=== PATIENT | male | born 1945 | race Hispanic/Latino ===

== ENCOUNTER 2019-01-24 06:46 | Day surgery (SDC) | payer OTHER, MEDICARE ==
[2019-01-23 15:15] VITALS: BP 152/79
--- NOTE | 2019-01-23 15:50 | NUR ---
ASPIRIN PT STATED HE TOOK HIS ASPIRIN THIS MORNING. NOTIFIED DR. BECERRA. OKAY TO PROCEED WITH PLANNED PROCEDURE.
[2019-01-23] MEDS: CEFAZOLIN SODIUM 1 GM VIAL IVP SCH (17:45)
[~2019-01-24] VITALS: Ht 177.8 cm; Wt 89.3 kg
[2019-01-24] VITALS (14 sets, daily range): BP systolic 111–155; BP diastolic 62–102
[~2019-01-24 06:46] MED LIST: AMLODIPINE PO; ASPI-555 PO; DULO30CA51 PO; HYDR-4064 PO; INS7030 SQ; METF500S7 PO; PRAV10TA39 PO
[2019-01-24] MEDS ORDERED: LIDOCAINE PF 2% 5ML ABBOJECT ONE (07:32)
[2019-01-24] MEDS ORDERED: SUCCINYLCHOLINE 200MG/10ML SYR ONE ×2 (07:32→07:35)
[2019-01-24] MEDS ORDERED: GLYCOPYRROLATE 1 MG/5 ML SYRINGE ONE (07:33)
[2019-01-24] MEDS ORDERED: DEXAMETHASONE SOD PHOSPHATE 10MG/ML 1ML VIAL ONE (07:33)
[2019-01-24] MEDS ORDERED: ONDANSETRON HCL 4 MG/2 ML VIAL ONE (07:33)
[2019-01-24] MEDS ORDERED: PROPOFOL 10 MG/ML 20ML VIAL IV ONE (07:33)
[2019-01-24] MEDS ORDERED: NEOSTIGMINE 5MG/5ML SYR IV ONE (07:33)
[2019-01-24] MEDS ORDERED: MIDAZOLAM HCL 1 MG/ML 2ML VIAL ONE (07:34)
[2019-01-24] MEDS ORDERED: ROCURONIUM 10MG/1ML SYR 10 MG/ML ML ONE (07:34)
[2019-01-24] MEDS ORDERED: FENTANYL CITRATE PF 50 MCG/1 ML 2ML VIAL ONE ×2 (07:34→08:43)
[2019-01-24] MEDS ORDERED: SODIUM CHLORIDE 0.9% 1000ML 1,000 ML IV ONE (07:37)
--- NOTE | 2019-01-24 07:40 | NUR ---
POTENTIAL FOR INFECTION: SHAVED RIGHT KNEE / LEG PER CLARA GOETZ, FOLLOWED BY WIPING WITH GABY: CHLORHEXIDINE GLUCONATE CLOTH PATIENTS PRE-OP SKIN PREP.
[2019-01-24] MEDS: CEFAZOLIN SODIUM 1 GM VIAL IVP SCH (08:20)
[2019-01-24] MEDS ORDERED: LIDOCAINE HCL 4% LTA SOL 4 ML VIAL ONE (08:46)
[2019-01-24] MEDS ORDERED: OXYMETAZOLINE HCL SPRAY 15 ML BOTTLE ONE (08:53)
[2019-01-24] MEDS ORDERED: CEPH-578 PO (09:05)
[2019-01-24] MEDS ORDERED: NAPR-1192 PO (09:05)
[2019-01-24] MEDS ORDERED: HYDR-4458 PO (09:05)
--- NOTE | 2019-01-24 10:40 | NUR ---
DC DC INSTRUCTIONS GIVEN TO PT SON WITH RX X 3, INSTRUCTED TO F/U WITH DR. BECERRA. PHOTO COPY OF DR. BECERRA ORDERS REVIEWED AND INSTRUCTED WITH PATIENT, CRUTCHES PROVIDED TO PATIENT. PIV REMOVED. PT DENIES ANY PAIN OR DISCOMFORTS.
--- NOTE | 2019-01-24 10:50 | NUR ---
DC PT DC HOME VIA WC,NO DISTRESS NOTED. RIGHT KNEE DRESSING DRY AND INTACT, NEUROVASCULAR CHECK WNL. ACCOMPANIED BY SON.
== END 2019-01-24 10:50 | disposition home or self-care (01) ==
LOC: DAH 06:46
PROVIDERS: ATTEND Orthopaedic Surgery
DX: M23.221 Derangement of posterior horn of medial meniscus due to old tear or injury, right knee (principal); M22.41 Chondromalacia patellae, right knee; E11.9 Type 2 diabetes mellitus without complications; Z79.899 Other long term (current) drug therapy; Z79.4 Long term (current) use of insulin; Z79.84 Long term (current) use of oral hypoglycemic drugs; Z98.890 Other specified postprocedural states; M25.561 Pain in right knee; I10 Essential (primary) hypertension; E66.9 Obesity, unspecified
CPT/HCPCS: 29881; 82948 ×2; A4218; A4606; A4649 ×2; A4930; A6223; J0330 ×2; J0690; J1100; J2001; J2250; J2405; J2704; J2710; J3010 ×2; J3490; J7030 ×2

== ENCOUNTER 2023-08-30 19:19 | Emergency (ER) | payer OTHER, MEDICARE ==
[~2023-08-30] VITALS: Ht 177.8 cm; Wt 85.7 kg
[~2023-08-30 19:19] MED LIST changes: -ASPI-555 PO; +ASPI-556 PO; +CEPH-578 PO; -DULO30CA51 PO; +DULO30CA52 PO; -HYDR-4064 PO; +HYDR-4458 PO; -METF500S7 PO; +METF500S9 PO; +NAPR-1192 PO
[2023-08-30 19:48] LABS: BASOPHILS # (AUTO) 0.05 K/uL (0.00-0.20); BASOPHILS % (AUTO) 0.4 % (0.0-5.0); EOSINOPHILS # (AUTO) 0.03 K/uL (0.00-0.70); EOSINOPHILS % (AUTO) 0.2 % (0.0-8.0); HEMATOCRIT 41.9 % (42-54); IMMATURE GRANULOCYTE ABSOLUTE 0.06 K/uL (0-1); LYMPHOCYTES # (AUTO) 1.3 K/uL (1.0-4.8); LYMPHOCYTES % (AUTO) 10.1 % (21.0-51.0); MEAN CORPUSCULAR HEMOGLOBIN 29.2 pg (27.0-33.0); MEAN CORPUSCULAR VOLUME 91.3 fL (79-99); MONOCYTES # (AUTO) 0.7 K/uL (0.1-1.0); MONOCYTES % (AUTO) 5.5 % (3.0-13.0); NEUTROPHILS % (AUTO) 83.3 % (40.0-77.0); PLATELET COUNT (AUTO) 302 K/uL (130-400); RED BLOOD CELL COUNT(AUTO) 4.59 MIL/uL (4.50-6.20); RED CELL DISTRIBUTION WIDTH 12.9 % (11.0-15.5); WHITE BLOOD COUNT (AUTO) 13.2 K/uL (4.8-10.8)
[2023-08-30 20:00] LABS: INR 0.94 (0.85-1.15); PROTHROMBIN TIME 10.9 SEC (9.6-11.6)
[2023-08-30 20:06] LABS: B-TYPE NATRIURETIC PEPTIDE 106 pg/mL (0-100); CREATININE 2.1 mg/dL (0.5-1.5); POTASSIUM 4.5 mmol/L (3.5-5.1)
[2023-08-30 20:15] LABS: ALBUMIN 3.6 g/dL (3.5-5.0); BILIRUBIN,TOTAL 0.3 mg/dL (0.2-1.0); TOTAL PROTEIN, SERUM 7.9 g/dL (6.0-8.3)
[2023-08-30] MEDS: 0.9%NACL 1000ML 1,000 ML IV ONE (20:54)
[2023-08-30 21:09] VITALS: O2SAT 99
[2023-08-30 22:10] VITALS: BP 152/74; PULSE 88; RESP 18
== END 2023-08-30 22:12 | disposition home or self-care (01) ==
LOC: EDH 19:19
DX: E11.649 Type 2 diabetes mellitus with hypoglycemia without coma (principal); Z79.4 Long term (current) use of insulin; Z79.82 Long term (current) use of aspirin; Z79.84 Long term (current) use of oral hypoglycemic drugs; Z79.899 Other long term (current) drug therapy; Z72.89 Other problems related to lifestyle
CPT/HCPCS: 99285; 96360; 70450; 71045; 82550; 83735; 84484; 80053; 85025; 85610; 85730; 87040 ×2; 82948 ×3; 83605; 36415; 93005; 83880 ×2; J7030